=== PATIENT | female | born 1985 | race Caucasian/White ===

== ENCOUNTER 2022-03-27 08:48 | Outpatient (CLI) | payer OTHER, SELFPAY ==
[2022-03-27 14:56] LABS: Cholesterol* 144 mg/dL (90-199)
[2022-03-27 14:57] LABS: Glucose* 89 mg/dL (60-115); HDL Cholesterol* 58 mg/dL (>=50); LDL Cholesterol Calculated 75 mg/dL (<100); Triglycerides* 57 mg/dL (40-149)
== END 2022-03-27 08:49 | disposition home or self-care (01) ==
PROVIDERS: PCP Emergency Medicine; Visit Provider Emergency Medicine
DX: Z13.1 Encounter for screening for diabetes mellitus (principal); Z13.6 Encounter for screening for cardiovascular disorders
CPT/HCPCS: 80061; 82947